=== PATIENT | female | born 1965 | race Caucasian/White ===

== ENCOUNTER → 2017-10-08 14:51 | Outpatient (CLI) | payer BC, SELFPAY ==
[2017-10-09 09:37] LABS: Vitamin D,25 Hydroxy 43.9 ng/mL (29.95-100.01)
== END ==
PROVIDERS: Family Provider Family Medicine; PCP Family Medicine; Visit Provider Family Medicine
DX: E55.9 Vitamin D deficiency, unspecified (principal)
CPT/HCPCS: 36415; 82306

== ENCOUNTER → 2018-10-20 09:59 | Outpatient (CLI) | payer BC, SELFPAY ==
[2018-10-20 12:20] LABS: Absolute Lymphocyte Count 1.41 X10^3/ul (0.83-4.51); Absolute Neutrophil Count 2.3 X10^3/uL (2.0-7.7); Basophil# 0.06 X10^3/uL; Basophil% 1.4 % (0-1); Eosinophil# 0.14 X10^3/uL; Eosinophils% 3.2 % (0-5); Hematocrit 40.1 % (37-47); Hemoglobin 12.8 g/dl (12.0-15.0); Lymphocyte # 1.41 X10^3/ul (4.0); Lymphocyte % 31.9 % (19-41); Mean Corp Hgb Conc 31.9 g/gl (32-36); Mean Corpuscular Hgb 28.2 pg (27.0-32.0); Mean Corpuscular Volume 88.3 fL (81-99); Mean Platelet Vol. 10.4 fl (6.2-12.0); Monocyte# 0.52 X10^3/uL; Monocyte% 11.8 % (0-10); Neutrophil # 2.29 X10^3/uL (2.7-7.7); Neutrophil % 51.7 % (47-70); Platelet Count 279 K/mm3 (150-450); RBC Distribution Width CV 13.7 % (11.6-14.6); RBC Distribution Width SD 43.9 fl (35.1-43.9); Red Blood Count 4.54 M/mm3 (4.2-5.4); White Blood Count 4.4 K/mm3 (4.4-11.0)
[2018-10-20 12:30] LABS: POSITIVE COUNT NO; POSITIVE DIFFERENTIAL NO; POSITIVE MORPHOLOGY NO
[2018-10-20 12:53] LABS: Vitamin D,25 Hydroxy 27.2 ng/mL (29.95-100.01)
[2018-10-20 12:59] LABS: Anion Gap 6 (5-15); BUN 26 mg/dL (7-18); BUN/Creat Ratio 29.6 RATIO (10-20); Calcium,Total 8.8 mg/dL (8.5-10.1); Chloride 108 mmol/L (98-107); Cholesterol 237 mg/dL (200); Creatinine, Serum 0.88 mg/dL (0.55-1.02); EST Glomerular Filtration Rate 71 mL/min (>60); Est Glom Filt Rate - Afr Amer 86 mL/min (>60); Glucose 89 mg/dL (74-106); High Density Lipoprotein 107 mg/dL; Potassium 4.4 mmol/L (3.5-5.1); Sodium Level 141 mmol/L (136-145); Triglycerides 65 mg/dL; Very Low Density Lipoprotein 13 mg/dL (5-40)
== END ==
PROVIDERS: Family Provider Family Medicine; PCP Family Medicine; Referring Provider Family Medicine; Visit Provider Family Medicine
DX: Z00.00 Encounter for general adult medical examination without abnormal findings (principal)
CPT/HCPCS: 36415; 80048; 80061; 82306; 85025

== ENCOUNTER → 2019-04-24 14:45 | Outpatient (CLI) | payer BC, SELFPAY ==
[2019-04-24 16:25] LABS: ALB/GLOB Ratio 1.1 RATIO (0.9-2.4); AST(SGOT) 20 U/L (15-37); Alanine Aminotransfer ALT/SGPT 28 U/L (13-56); Albumin, Serum 3.9 g/dL (3.2-5.0); Alkaline Phosphatase 70 U/L (45-117); Anion Gap 5 (5-15); BUN 15 mg/dL (7-18); BUN/Creat Ratio 16.6 RATIO (10-20); Chloride 104 mmol/L (98-107); EST Glomerular Filtration Rate 69 mL/min (>60); Est Glom Filt Rate - Afr Amer 84 mL/min (>60); Globulin 3.6 g/dL (2.2-4.2); Glucose 79 mg/dL (74-106); Potassium 3.8 mmol/L (3.5-5.1); Protein, Total 7.5 g/dL (6.4-8.2); Sodium Level 137 mmol/L (136-145)
== END ==
PROVIDERS: Family Provider Family Medicine; PCP Family Medicine; Referring Provider Family Medicine; Visit Provider Family Medicine
DX: E78.00 Pure hypercholesterolemia, unspecified (principal)
CPT/HCPCS: 36415; 80053

== ENCOUNTER → 2020-01-07 13:40 | Outpatient (CLI) | payer BC, SELFPAY ==
[2020-01-07 15:35] LABS: Absolute Neutrophil Count 2.6 X10^3/uL (2.0-7.7); Basophil# 0.08 X10^3/uL; Basophil% 1.5 % (0-1); Eosinophil# 0.18 X10^3/uL; Eosinophils% 3.4 % (0-5); Hematocrit 40.1 % (37-47); Hemoglobin 12.9 g/dL (12.0-15.0); Lymphocyte % 35.8 % (19-41); Mean Corp Hgb Conc 32.2 g/dL (32-36); Mean Corpuscular Hgb 27.8 pg (27.0-32.0); Mean Corpuscular Volume 86.4 fL (81-99); Monocyte# 0.53 X10^3/uL; NRBC Flagged by Analyzer 0 % (0-5); Neutrophil # 2.61 X10^3/uL (2.7-7.7); Neutrophil % 49.1 % (47-70); Platelet Count 256 K/mm3 (150-450); RBC Distribution Width CV 14.6 % (11.6-14.6); RBC Distribution Width SD 46.3 fl (35.1-43.9); Red Blood Count 4.64 M/mm3 (4.2-5.4); White Blood Count 5.3 K/mm3 (4.4-11.0)
[2020-01-07 15:55] LABS: ALB/GLOB Ratio 1.6 RATIO (0.9-2.4); AST(SGOT) 13 U/L (15-37); Alanine Aminotransfer ALT/SGPT 25 U/L (13-56); Albumin, Serum 4.2 g/dL (3.2-5.0); Alkaline Phosphatase 72 U/L (45-117); Anion Gap 10 (5-15); BUN 20 mg/dL (7-18); BUN/Creat Ratio 25.1 RATIO (10-20); Calcium,Total 8.5 mg/dL (8.5-10.1); Chloride 105 mmol/L (98-107); Cholesterol 208 mg/dL (200); EST Glomerular Filtration Rate 79 mL/min (>60); Est Glom Filt Rate - Afr Amer 96 mL/min (>60); Globulin 2.7 g/dL (2.2-4.2); Glucose 83 mg/dL (74-106); High Density Lipoprotein 91 mg/dL; Potassium 3.8 mmol/L (3.5-5.1); Protein, Total 6.9 g/dL (6.4-8.2); Sodium Level 138 mmol/L (136-145); Thyroid Stim Hormone (TSH) 1.53 uIU/mL (0.358-3.74); Triglycerides 58 mg/dL; Very Low Density Lipoprotein 12 mg/dL (5-40)
== END ==
PROVIDERS: PCP Family Medicine; Referring Provider Family Medicine; Visit Provider Family Medicine
DX: E78.00 Pure hypercholesterolemia, unspecified (principal); E66.9 Obesity, unspecified; Z79.899 Other long term (current) drug therapy
CPT/HCPCS: 36415; 80053; 80061; 84443; 85025

== ENCOUNTER 2021-06-11 11:08 | Emergency (ER) | payer BC, SELFPAY ==
[2021-06-11 11:09] VITALS: BP 122/89; PULSE 111; RESP 20; TEMP 36.1; O2SAT 100; BMI 30.7
--- NOTE | 2021-06-11 11:33 | CT_ITS ---
STUDY: CT ABDOMEN AND PELVIS WITHOUT CONTRAST REASON FOR EXAM: Female, 55 years old. Pain RADIATION DOSAGE (If Supplied By Facility): CTDIvol = ( 12.74 ) mGy, DLP = ( 661.93 ) mGycm TECHNIQUE: Transaxial images were obtained from the dome of the diaphragm to the symphysis pubis without oral contrast, and without intravenous contrast. Sagittal and coronal images were reconstructed. Individualized dose optimization techniques were used for this CT. COMPARISON: 12/31/2011 CT FINDINGS: Lung bases demonstrate no consolidative process. Platelike atelectasis in the lung bases. No pericardial effusion. Liver and spleen demonstrate no acute abnormalities. Pancreas and adrenal glands appear unremarkable. Normal-appearing appendix. Uncomplicated colonic diverticulosis. Small fat-containing umbilical hernia No free intraperitoneal air. No drainable fluid collections. Degenerative changes of the lumbar spine. Normal caliber of the abdominal aorta with calcifications. IMPRESSION: No evidence for acute appendicitis, diverticulitis or bowel obstruction. No evidence for obstructive uropathy. Electronically Signed: Abebe Ortiz MD at 12:15 EST Tel , Service support , CT/Abdomen/Pelvis without Cont
--- NOTE | 2021-06-11 11:34 | EDS_ITS ---
HPI HPI - GI History of Present Illness Chief Complaint: Flank Pain Informant: patient and spouse/S.O. Abdominal Pain/Flank Pain Onset: Days Context: Gradual Onset Timing: Continuous Quality: Sharp Location: Right Flank and Left Flank Current Severity: Severe Maximum Severity: Severe Worsened by: Nothing Relieved by: Nothing Nausea/Vomiting/Emesis GI Symptom: Negative for Nausea and Vomiting Diarrhea/Melena/Hematochezia GI Symptom: Negative for Diarrhea, Melena and Hematochezia Associated Symptoms Associated Symptoms: Negative for Dysuria, Frequency, Hematuria and Urgency Narrative Narrative: 55-year-old female history of depression. Has had a prior kidney stone. Since on Saturday she had bilateral lower back pain. Was seen at [facility] urgent care x2 in the last several days and had a dip urine that was negative KUB that showed a left renal stone and increased stool. States she took stool softener and seemed to have bowel movements. But the pain progressively gets worse. It is on her right flank wrapping around to her groin. Also her left side of her back. She denies any falls or trauma. No fever. No dysuria. No prior back history or surgery. She denies any weight loss. Prior similar symptoms: No Recent Illness/Hospitalization: No PFSH PFSH Medical History Depression Kidney stones Home Medications hydrocodone-acetaminophen 1 tab PO Q4H PRN 4 Days #14 tab 06/11/21 [Rx Last Taken Unknown] Allergy/AdvReac Type Severity Reaction Status Date / Time No Known Allergies Allergy Verified 06/11/21 11:09 Social History Smoking Status: Never smoker ROS ROS ED ROS Narrative Back and flank pain. Review of Systems ROS Unobtainable: Denies due to encephalopathy Constitutional Constitutional ED: Denies chills, fever(s) or subjective ENT ENT ED: Denies ear pain or rhinorrhea Cardiovascular Cardiovascular: Denies chest pain or palpitations Respiratory/Chest Respiratory/Chest: Denies cough or dyspnea Gastrointestinal Gastrointestinal: Denies abdominal pain, diarrhea, nausea or vomiting Genitourinary Genitourinary ED: Denies dysuria, hematuria or urinary frequency Musculoskeletal Musculoskeletal: Reports back pain; Denies arthralgias or myalgias Integumentary Denies abscess or rash Neurologic Neurologic: Denies headache(s) Psychiatric Psychiatric: Denies depression Endocrine Endocrinology: Denies polyuria Hematologic/Lymphatic Hematologic/Lymphatic: Denies easy bruising Allergic/Immunologic Allergic/Immunologic ED: Denies urticaria EXAM Physical Exam Narrative Exam Narrative: Middle-aged female in pain. Vital signs are stable afebrile. H EENT exam unremarkable. Neck nontender. Lungs clear to auscultation. Heart regular rhythm rate about 105 no murmur. Abdomen soft nontender nondistended normal bowel sounds no peritoneal signs. No hernia or mass. No signs of obstruction. Both the right upper and right lower quadrant unremarkable. Moving all 4 extremities. Neurovascularly intact. Normal motor strength and sensation both upper and lower extremities. No cauda equina. Back nontender and no signs of trauma. There is no reproducible pain on either the abdomen or back. Neurologic exam is normal. Const Vital Signs: 06/11/21 11:09 06/11/21 12:49 Temperature 97.0 F L 97 F L Temperature Source Temporal Temporal Pulse Rate 111 H 73 Respiratory Rate 20 H 24 H Blood Pressure 122/89 H 118/66 Blood Pressure Mean 100 83 Pulse Ox 100 100 Oxygen Delivery Method Room Air Room Air Positive well nourished and well developed; Negative for cachectic, contractures or unkempt General Appearance ED: well developed and NAD; Negative for unkempt, cachectic, contractures or pallor Nutritional Appearance: Negative for cachectic HEENT Reports moist mucous membranes normocephalic and atraumatic; Negative for trauma or tenderness Eyes PERRL and EOMs intact bilaterally Neck no lymphadenopathy, supple and no JVD General: Negative for tenderness Resp normal respiratory effort and clear to auscultation bilaterally Auscultation: Negative for rales, rhonchi or wheezes Cardio regular rate, regular rhythm, S1 normal heart sound, S2 normal heart sound and no murmurs GI non-tender, non-distended and no masses Auscultation: normoactive bowel sounds Palpation: soft; Negative for tender, guarding or rigid Back/Spine no CVA tenderness General Back: Negative for CVA tenderness Cervical Spine: Negative for cervical spine tenderness Thoracic Spine / Upper Back: Negative for thoracic spinal tenderness Extremity full ROM General Extremety ED: Negative for edema or tenderness General Extremity: Negative for edema Neuro CN's II-XII intact bilaterally, moves all extremities and no sensory deficits noted Sensorium / Orientation: alert, oriented to person, oriented to place and oriented to time; Negative for orientation impaired, confused, lethargic or stuporous Motor Exam: strength 5/5 throughout; Negative for general weakness Psych mental status grossly normal and thought process normal Appearance: Negative for unkempt Skin no wounds General Skin Exam: Negative for jaundice or pallor Lesions: no lesions Rashes: no rashes MDM MDM MDM Narrative Medical decision making narrative: 55-year-old with back and flank pain. Treated with IV morphine, fluids, Toradol and Zofran. CAT scan and labs are pending. Kidney stones in the differential but it is bilateral flank pain could also be urinary tract infection versus musculoskeletal etiology. Exam is not consistent with musculoskeletal pain. There is no signs of cauda equina. In her abdomen is completely nontender. Repeat exam at 12:11 PM patient is much more comfortable after the pain medicati on. Repeat exam patient doing well at 2 PM. Her pain is much improved. This does seem to be musculoskeletal back pain. Her abdomen is completely benign and has never been tender. Her work-ups been negative. Her lower extremities have normal motor strength and sensation. She will be discharged home on Motrin and limited [place] and follow-up for possible outpatient MRI if her symptoms are impr oving. Lab Data Attestation: I reviewed the patient's lab results. Lab results narrative: CBC normal white count of four hemoglobin of 13. Normal platelets. No bands. Electrolytes unremarkable gap of five normal BUN and creatinine. Glucose of 89 normal liver enzymes. Urinalysis is clean. No signs of infection. No blood. Only 1+ bacteria no nitrates no white cells. Labs: Laboratory Results - last 24 hr 06/11/21 06/11/21 06/11/21 11:20 11:20 12:30 WBC 4.5 RBC 4.62 Hgb 13.0 Hct 40.1 MCV 86.8 MCH 28.1 MCHC 32.4 RDW Std Deviation 43.2 RDW Coeff of Mary Carmen 13.7 Plt Count 306 MPV 9.8 Immature Gran % (Auto) 0.200 Neut % (Auto) 45.4 L Lymph % (Auto) 42.0 H Howard % (Auto) 8.8 Eos % (Auto) 2.7 Baso % (Auto) 0.9 Absolute Neuts (auto) 2.1 Absolute Lymphs (auto) 1.90 Nucleated RBC % 0 Sodium 141 Potassium 3.8 Chloride 107 Carbon Dioxide 29.0 Anion Gap 5 BUN 18 Creatinine 0.90 Estim Creat Clear Calc 65.34 Est GFR (MDRD) Af Amer 84 Est GFR (MDRD) Non-Af 69 BUN/Creatinine Ratio 20.1 H Glucose 89 Calcium 9.0 Total Bilirubin 0.40 AST 14 L ALT 28 Alkaline Phosphatase 63 Total Protein 7.3 Albumin 3.8 Globulin 3.5 Albumin/Globulin Ratio 1.1 Urine Color Yellow Urine Clarity Clear Urine pH 7.0 Ur Specific [place] 1.015 Urine Protein 15 H Urine Glucose (UA) Normal Urine Ketones Negative Urine Occult Blood Negative Urine Nitrite Negative Urine Bilirubin Negative Urine Urobilinogen Normal Ur Leukocyte Esterase Negative Urine RBC 0 SEEN Urine WBC 0 SEEN Ur Squamous Epith Cells 0-5 SEEN Urine Bacteria 1+ Urine Mucus 0 SEEN Radiography Diagnostic Testing: Clinical Impression(s) from Imaging Studies Abdomen/Pelvis CT 06/11/21 11:33 Discharge Plan Triage Chief Complaint: Flank Pain ED Provider: Nolberto Saenz Dx/Rx/DC Orders Clinical Impression: Back pain Instructions: Relieving Back Pain, ED Back Pain (Acute or Chronic) Prescriptions: New hydrocodone-acetaminophen 5-325 mg tablet 1 tab PO Q4H PRN (Reason: pain) 4 Days Qty: 14 RF: 0 Primary Care Provider: Care Physician,No Primary Referrals: Calvin Vivas MD [STAFF PHYSICIAN] - As soon as possible Julien Chandra MD [NON-STAFF] - 10-14 Days if not better Care Physician,No Primary [Primary Care Provider] - Activity Restrictions/Additional Instructions: Motrin for pain and inflammation. Hot shower and warm bath to relax the muscles. [place] for more severe pain. Do not use Tylenol if using the [place]. Call follow-up with a local primary care physician like Dr. Vivas if not improving you may need MRI of your lumbar spine. If you need to see a back specialist consider Dr. Julien Chandra in [place]. Disposition Disposition: Home, Self Care
[2021-06-11] MEDS: morphine 8 MG/ML Syringe IV (11:41)
[2021-06-11] MEDS: Ketorolac 30 MG/ML Syringe IV (11:41)
[2021-06-11] MEDS: 0.9% Normal Saline 1,000 ML 1000 ML IV (11:41)
[2021-06-11] MEDS: Ondansetron 4 MG/2 ML Vial IV (11:41)
[2021-06-11 11:44] LABS: Absolute Neutrophil Count 2.1 X10^3/uL (2.0-7.7); Basophil# 0.04 X10^3/uL; Basophil% 0.9 % (0-1); Eosinophil# 0.12 X10^3/uL; Eosinophils% 2.7 % (0-5); Hematocrit 40.1 % (37-47); Mean Corp Hgb Conc 32.4 g/dL (32-36); Mean Corpuscular Hgb 28.1 pg (27.0-32.0); Mean Corpuscular Volume 86.8 fL (81-99); Mean Platelet Vol. 9.8 fl (6.2-12.0); Monocyte% 8.8 % (0-10); NRBC Flagged by Analyzer 0 % (0-5); Neutrophil # 2.05 X10^3/uL (2.7-7.7); Neutrophil % 45.4 % (47-70); Platelet Count 306 K/mm3 (150-450); RBC Distribution Width CV 13.7 % (11.6-14.6); RBC Distribution Width SD 43.2 fl (35.1-43.9); Red Blood Count 4.62 M/mm3 (4.2-5.4); White Blood Count 4.5 K/mm3 (4.4-11.0)
[2021-06-11 11:56] LABS: ALB/GLOB Ratio 1.1 RATIO (0.9-2.4); AST(SGOT) 14 U/L (15-37); Alanine Aminotransfer ALT/SGPT 28 U/L (13-56); Albumin, Serum 3.8 g/dL (3.2-5.0); Alkaline Phosphatase 63 U/L (45-117); Anion Gap 5 (5-15); BUN 18 mg/dL (7-18); BUN/Creat Ratio 20.1 RATIO (10-20); Chloride 107 mmol/L (98-107); EST Glomerular Filtration Rate 69 mL/min (>60); Est Glom Filt Rate - Afr Amer 84 mL/min (>60); Estimated Creatinine Clearance 65.34 ml/min; Globulin 3.5 g/dL (2.2-4.2); Glucose 89 mg/dL (74-106); Potassium 3.8 mmol/L (3.5-5.1); Protein, Total 7.3 g/dL (6.4-8.2); Sodium Level 141 mmol/L (136-145)
[2021-06-11 12:34] LABS: Mucous, Urine 0 SEEN /hpf (<or=2+); Red Blood Cells-Urine 0 SEEN /hpf (0-5); White Blood Cells 0 SEEN /hpf (0-5)
[2021-06-11 12:36] LABS: Color, Urine Yellow (Yellow); Glucose, Dipstick Normal (Normal); Ketone-Dipstick Negative (Negative); Leukocyte Esterase-Dipstick Negative /ul (Negative); Nitrite-Dipstick Negative (Negative); Occult Blood-Urine Negative /ul (Negative); Protein-Dipstick 15 mg/dl (Negative); Specific Gravity, Urine 1.015 (1.002-1.030); Urine Bilirubin Dipstick Negative (Negative); Urine Clarity Clear (Clear); Urine Urobilinogen Normal (Normal)
[2021-06-11 12:45] LABS: Bacteria 1+ /hpf (None Seen); Squamous Epithelial Cells - UA 0-5 SEEN /hpf (5-10)
[2021-06-11] MEDS: Morphine 4 MG/ML Syringe 6 MG IV (12:47)
[2021-06-11 12:49] VITALS: BP 118/66; PULSE 73; RESP 24; TEMP 36.1; O2SAT 100
== END 2021-06-11 14:16 | disposition home or self-care (01) ==
PROVIDERS: Emergency Provider Emergency Medicine
DX: M54.50 Low back pain, unspecified (principal); R10.9 Unspecified abdominal pain; Z87.442 Personal history of urinary calculi
CPT/HCPCS: 74176; 80053; 81001; 85025; 96361; 96374; 96375; 96376; 99283; J7030; A4216; J2405

== ENCOUNTER → 2021-06-12 12:01 | Outpatient (CLI) | payer BC, SELFPAY ==
--- NOTE | 2021-06-12 12:04 | RAD_ITS ---
STUDY: X-RAY - ABDOMEN/PELVIS REASON FOR EXAM: Female, 55 years old. Constipation. TECHNIQUE: AP supine and upright views of the abdomen and pelvis on 4 images. COMPARISON: None. FINDINGS: Normal visualized lung bases. There is an unremarkable bowel gas pattern with air seen to the rectosigmoid. Moderate amount of feces in the colon. There is no demonstrated free abdominal air. The visualized liver, spleen and kidneys are grossly normal in size and morphology. Normal soft tissue structures. Normal visualized osseous structures. RAD/Abd Inc Decub and/or Erect IMPRESSION: Moderate amount of feces in the colon which may represent constipation. No acute abnormality. Electronically Signed: Tom Do MD at 13:26 EST , Service support ,
--- NOTE | 2021-06-12 12:04 | RAD_ITS ---
STUDY: X-RAY - LUMBAR SPINE REASON FOR EXAM: Female, 55 years old. Back pain. TECHNIQUE: 4 view(s) of the lumbar spine were obtained. COMPARISON: None FINDINGS: Normal lumbar lordosis. There is no substantial scoliosis. There is a normal alignment of the vertebrae. Mild diffuse facet sclerosis. Normal vertebral bodies and endplates. Minimal intervertebral disc space narrowing diffusely with small osteophytes at L1-2, L2-3, L3-4 and L4-L5. The soft tissue structures are unremarkable. RAD/L/S Spine Min 4 Views IMPRESSION: Mild diffuse lumbosacral spondylosis. No acute abnormality, erosive changes or fusion. Electronically Signed: Tom Do MD at 13:28 EST , Service support ,
== END ==
PROVIDERS: PCP Family Medicine; Referring Provider Family Medicine; Visit Provider Family Medicine
DX: K59.00 Constipation, unspecified (principal); M54.9 Dorsalgia, unspecified
CPT/HCPCS: 72110; 74019

== ENCOUNTER → 2021-06-20 10:21 | Outpatient (CLI) | payer BC, SELFPAY ==
--- NOTE | 2021-06-20 10:23 | MRI_ITS ---
HISTORY: pain. TECHNIQUE: Multiplanar and multisequence MR images of the lumbar spine. IV Contrast dosage and agent: None. # of images incl. paperwork: 126. COMPARISON: XR 06/12/2021. FINDINGS: VERTEBRAE: Vertebral body heights maintained. No significant bone marrow signal abnormality. ALIGNMENT: No anterior or posterior subluxation. CONUS: Normal morphology and position at L1. SOFT TISSUES: Mild posterior subcutaneous edema. INTERVERTEBRAL DISCS: T12-L1: Minimal posterior disc protrusion. No significant central canal stenosis or foraminal narrowing. L1-2: Mild posterior disc bulge osteophyte complex with facet arthropathy. No significant central canal stenosis or foraminal narrowing. L2-3:Minimal posterior disc protrusion with facet arthropathy. No significant central canal stenosis or foraminal narrowing. L3-4, L4-5: Minimal disc bulge and facet arthropathy. No significant central canal stenosis or foraminal narrowing. L5-S1: No significant posterior disc herniation, central canal stenosis, or foraminal narrowing. MRI/Spine Lumbar (Routine) IMPRESSION: Mild degenerative disc disease without significant lumbar spinal canal stenosis. at 1134 Reported and signed by: Geovanna Page MD Electronically Signed: Geovanna Page MD at 11:33 EST Tel , Service support ,
== END ==
PROVIDERS: PCP Family Medicine; Referring Provider Orthopaedic Surgery; Visit Provider Orthopaedic Surgery
DX: G83.4 Cauda equina syndrome (principal); M54.9 Dorsalgia, unspecified
CPT/HCPCS: 72148

== ENCOUNTER 2021-07-19 09:51 | Day surgery (SDC) | payer BC, SELFPAY ==
[2021-07-19] MEDS: Lactated Ringers 1,000 ML 15 ML IV (10:00)
--- NOTE | 2021-07-19 10:04 | PCM.HP.BLA ---
History and Physical Date of Admission: 07/19/21 Intake Intake Visit Reasons: nausea/bloating/constipation Allergies No Known Allergies Allergy (Verified 07/11/21 15:15) Medications hydrocodone-acetaminophen 1 tab PO Q4H PRN 4 Days #14 tab 06/11/21 [Rx Confirmed 07/11/21] ascorbic acid (vitamin C) 500 mg capsule mg PO 06/19/21 [History Confirmed 07/11/21] bupropion HCl 150 mg 24 hr tablet, extended release 150 mg PO QAM 06/19/21 [History Confirmed 07/11/21] cholecalciferol (vitamin D3) 25 mcg (1,000 unit) capsule 25 mcg PO DAILY 06/19/21 [History Confirmed 07/11/21] esomeprazole magnesium 20 mg capsule,delayed release 20 mg PO DAILY 06/19/21 [History Confirmed 07/11/21] lamotrigine 25 mg tablet 25 mg PO ONCE 06/19/21 [History Confirmed 07/11/21] vitamin B complex 1 cap PO DAILY 06/19/21 [History Confirmed 07/11/21] zinc 50 mg tablet 50 mg PO DAILY 06/19/21 [History Confirmed 07/11/21] PFSH Medical History Depression Kidney stones Surgical History H/O gastric bypass H/O nasal septoplasty History of tonsillectomy History of ureter stent Hx of arthroscopic knee surgery Family History Father Cancer Prostate cancer Hodgkins disease Mesothelioma Mother Thyroid disorder A-fib Brother Asthma Social History household members: spouse and children Smoking Status: Never smoker alcohol intake: current alcohol intake frequency: holidays/special occasions only HPI HPI HPI: BLADE PINEDO, is a 55 F who presents to the office today for surgical consultation regarding right flank pain lower quadrant pain and mid abdominal pain and epigastric pain bloating constipation. 55-year-old female. About 5 weeks ago she developed a right lower back pain and concomitant constipation. She was seen at urgent care at [facility] and states she had a renal ultrasound and KUB. The ultrasound failed to demonstrate kidney stone. The KUB demonstrated constipation. She was given Toradol. The right flank pain and lower quadrant pain persisted. She then took a dosing of MiraLAX and had very good movement of her bowels however the flank pain continued. She presented to the emergency room the next day. On June 11, 2021 emergency room she was evaluated by Dr. Jose Roberto Saenz. White blood cell count was 4.5 hemoglobin 13 medical 40.1 platelet count 306,000 with essentially normal differential. BUN was 18 creatinine 0.9. Liver function tests were normal. Urinalysis had 0 white cells 0 red cells 1+ bacteria. A noncontrasted CT of the abdomen pelvis was obtained. Pancreas adrenals unremarkable. There was some platelike atelectasis in the lung bases. Uncomplicated colonic diverticulosis. Small fat-containing umbilical hernia. No acute findings. No evidence for appendicitis. No obstructive uropathy. It is of note that the next day the patient had abdominal films performed at the request of Dr. Raisa King. This demonstrated a moderate amount of feces in the colon but otherwise no acute abnormality. Apparently spine films were also obtained without acute process. The patient was then referred to Dr. Gomez Crowder spine surgery. On June 20, 2021 MRI was obtained showing mild degenerative disc disease without significant lumbar spinal canal stenosis. The patient was subsequently sent to physical therapy. She has been placed on Flexeril. Subsequent to the right flank pain and low abdominal pain now she has developed epigastric and mid abdominal pain. She has bloating and nausea. On further investigation it appears that she has been taking nonsteroidal anti-inflammatory agents for her stomach. Reviewing back January 10, 2012 I assisted her with a combined upper and lower endoscopy which was not remarkable. Because of abdominal pain complaints January 2019 Dr. Luis Winkler performed an upper endoscopy apparently this demonstrated intestinal metaplasia and active gastritis. She was placed on Nexium. Apparently she had been on NSAIDs at that time and was instructed to cease. She improved. The intestinal metaplasia was of concern and so December 2019 she had a repeat upper endoscopy. That was in follow-up of her intestinal metaplasia and that it apparently was improved. She has no family history of colon cancer. She did experience Covid-16 June 2020. Since that time she has been vaccinated. Her current problems however are ongoing right lower quadrant pain ongoing right flank pain ongoing constipation ongoing mid abdominal epigastric pain nausea and bloating. This addendum is in spite of her being on Nexium therapy 20 mg daily. The patient does admit that she is still intermittently taking some nonsteroidals to assist with the severity of the pain in the right flank lower back area There is been no noted bright red blood per rectum or melena. No fever or chills. No history of leg swelling or DVT ROS General General: No weight change, appetite, fatigue, colon cancer, breast cancer or weakness HEENT HEENT: No difficulty swallowing, eye injury, eye surgery, swollen glands or hoarseness Endo Endocrine: No thyroid disease, diabetes mellitus, thyroid cancer, Hair loss, heat intolerance or cold intolerance Skin Skin: No rash or changing moles Musc Musculoskeletal: Yes back problems; No arthritis, rheumatoid arthritis, gout or joint pain Cardio Cardiovascular: No murmur, pacemaker, heart disease, atrial fibrillation, high blood pressure, heart attack, heart stent, palpitations, shortness of breat with exertion or chest pain Psych Psychiatric: Yes depression and anxiety; No hearing voices Resp Respiratory: No shortness of breath, No sleep apnea, No cough, No COPD, No asthma, No emphysema and No wheezing Gastro Gastrointestinal: Yes abdominal pain, Yes nausea or vomiting, No diarrhea, Yes constipation, No blood in stool, Yes acid reflux, Yes hemorrhoids, No ulcers, No gallbladder problem and No black,tarry stools [place] Hematologic: No blood thinners, No blood disorders, No bleeding, No anemia and No blood clots Neuro Neurologic: No system reviewed and no additional complaints, except as documented, No as per HPI, No abnormal gait, No abnormal hearing, No abnormal movements, No abnormal speech, No behavioral changes, No burning sensations, No confusion, No convulsions, No disequilibrium, No dizziness, No localized weakness, No frequent falls, No headache(s), No lack of coordination, No loss of vision, No memory loss, No numbness, No other visual disturbances, No radicular pain, No restless legs, No sensory deficit, No syncope, No tingling, No tremor(s), No weakness and No other Exam Const General: cooperative, comfortable, no acute distress and well developed Nutritional Appearance: overweight Orientation: alert and awake [facility] Head: normal to inspection Eyes General: appearance normal, both eyes and all related structures Neck Neck: normal visual inspection Chest Chest palpation & inspection: normal inspection of the chest Resp Effort & Inspection: normal respiratory effort Auscultation: clear to auscultation bilaterally Cardio Rate: regular rate Rhythm: regular rhythm GI Other: Soft, minimal tenderness to deep palpation right lower quadrant, no mass, no rebound or guarding, normal bowel sounds Musc Cervical Spine: normal cervical lordosis Skin General: no rashes or lesions noted Neuro General: patient alert and patient awake Extrem General: no calf tenderness Psych Appearance: grossly normal Assessment and Plan Assessment and Plan (1) Right flank pain: Status: Acute (2) Right lower quadrant pain: Status: Acute (3) Constipation: Status: Acute Qualifiers: Constipation type: unspecified constipation type Qualified Code(s): K59.00 - Constipation, unspecified (4) Epigastric abdominal pain: Status: Acute Plan Details Additional Comments: 55-year-old female with complexity of issues. The right flank pain and right lower quadrant pain of undetermined etiology. I do propose for her a colonoscopy with possible biopsy or polypectomy. Very careful inspection of the cecum and possibly terminal ileum will be pursued. Consideration for rodriguez biopsy. Regarding the mid abdominal pain nausea I would propose an upper endoscopy as well. Careful inspection for any source of intestinal aplasia will be pursued. Inspection for H. pylori or even eosinophilic esophagitis. Pending the outcome of this evaluation then will be able to better advise the patient on treatment options. I have some concern that her epigastric pain may have evolved from repeat use of NSAIDs in order to combat her right flank pain. There is source of her constipation is less clear. Certainly some of this could all be irritable bowel syndrome as well. The patient will be transitioning in the near future to Dr Calvin Vivas as her new physician. She anticipates seeing him July 2021. She has had an opportunity to ask and have questions answered. We will schedule and expedite her endoscopy. I appreciate the opportunity of assisting with her surgical care. Copy: Dr Calvin Sapp M.D., F.A.C. I have re-examined the patient. There are no clinical changes since date of exam. Gvoind Sapp M.D., F.A.C.S.
[2021-07-19 10:11] VITALS: BP 147/83; PULSE 87; RESP 16; TEMP 36.3; O2SAT 99; BMI 30.7
--- NOTE | 2021-07-19 11:00 | IMM_PTH ---
PATIENT: BLADE PINEDO LOC: EN U#:[id number] AGE/SX: 55/F ROOM: RE07/19/[address]: Dr. Govind Sapp MD : 1965 BED: DIS: 07/19/2021 SPEC #: [id number] RECD: 07/19/21 14:53 STATUS: JONATHAN REQ #: [id number] FLORA: 07/19/21 11:[address]: Govind Sapp DEPT: IMMUNOHISTOCHEMISTRY RECD BY: Phyllis Aranda ENTERED: 07/19/21 14:53 SP TYPE: IMMUNO OTHR DR: Dr. Calvin Vivas MD Tissues: B - Stomach, NOS Procedures: H Pylori (initial) PHYSICIAN & INSTITUTION [place] [id number] SPECIMEN INFORMATION: Tissue Source: B ? Antrum biopsy Clinical Info: Right flank pain, right lower quadrant pain, constipation, epigastric abdominal pain Specimen Number: [id number] CPT code: 56737 METHODOLOGY: Deparaffinized sections of prefer/formalin-fixed tissue or PAP/DQ stained slides are incubated with monoclonal/polyclonal antibodies/oligonucleotide probes. Localization is made via biotin free immunoperoxidase method. Appropriate controls are performed and reacted as expected. Results on target cell population are indicated in the following table: RESULTS: ANTIBODY / CLONE RESULT Block B H Pylori (polyclonal) negative These tests were developed and their performance characteristics determined by [facility]. They may not have been cleared or approved by the U.S. Food and Drug Administration. The FDA has determined that such clearance or approval is not necessary. INTERPRETATION: B. Antrum biopsy: Negative for Helicobacter pylori organisms. AM:nathan 07/20/2021
--- NOTE | 2021-07-19 11:00 | EGD_PTH ---
PATIENT: BLADE PINEDO LOC: EN U#:[id number] AGE/SX: 55/F ROOM: RE07/19/[address]: Dr. Govind Sapp MD : 1965 BED: DIS: 07/19/2021 SPEC #: [id number] RECD: 07/19/21 11:23 STATUS: JONATHAN SZYMANSKI #: [id number] FLORA: 07/19/21 11:[address]: Govind Sapp DEPT: SURGICAL PATHOLOGY RECD BY: Missy Rodriguez ENTERED: 07/19/21 13:21 SP TYPE: EGD BIOPSY OT DR: Dr. Calvin Vivas MD Tissues: A - Duodenum, NOS B - Stomach, NOS C - Esophagus, NOS D - Ileum, NOS E - COLON BIOPSY Procedures: Trichrome (control) Special Stain Group II Surgery Specimen Level IV Alcian Blue/PAS (control) HEADER OPERATION: Colonoscopy, EGD ([facility] [place] PRE-OP DIAGNOSIS: Right flank pain, right lower quadrant pain, constipation, epigastric abdominal pain TISSUE SUBMITTED: A ? Duodenum biopsy, B ? Antrum biopsy for H. pylori and path, C ? GE junction biopsy, D - Mid esophagus biopsy, E ? Terminal ileum biopsy, F ? Random colon biopsies MICROSCOPIC DIAGNOSIS A. Duodenum, biopsy: No pathologic change. B. Gastric antrum, biopsy: Chronic gastritis. See comment. C. Gastroesophageal junction, biopsy: Mild chronic inflammation. Focal changes of reflux. No evidence of goblet cell metaplasia. See comment. D. Mid esophagus, biopsy: Mild chronic inflammation. E. Terminal ileum, biopsy: No pathologic change. F. Colon, random biopsy: No pathologic change. See comment. AM:nathan 07/20/2021 COMMENT B. The results of immunohistochemistry for Helicobacter pylori will be reported separately ([id number]). C. Alcian blue/PAS stain with matched control supports the above diagnosis. F. Trichrome stain with matched control was used in the evaluation of this case. MICROSCOPIC DESCRIPTION Slides are reviewed. GROSS DESCRIPTION A - Received in fixative is one container labeled with the patient's name and designated duodenum biopsy. The specimen consists of multiple irregular fragments of light cloud soft tissue that in aggregate measure 0.7 x 0.5 x 0.1 cm. The specimen is totally submitted in one cassette. B - Received in fixative is one container labeled with the patient's name and designated antrum biopsy. The specimen consists of one irregular fragment of light cloud soft tissue that measures 0.8 x 0.3 x 0.1 cm. The specimen is totally submitted in one cassette. C - Received in fixative is one container labeled with the patient's name and designated GE junction biopsy. The specimen consists of multiple irregular fragments of light cloud soft tissue that in aggregate measure 2 x 0.6 x 0.1 cm. The specimen is totally submitted in one cassette. D - Received in fixative is one container labeled with the patient's name and designated mid esophagus biopsy. The specimen consists of one irregular fragment of light cloud soft tissue that measures 0.3 x 0.3 x <0.1 cm. The specimen is totally submitted in one cassette. E - Received in fixative is one container labeled with the patient's name and designated terminal ileum biopsy. The specimen consists of one irregular fragment of light cloud soft tissue that measures 0.6 x 0.2 x 0.1 cm. The specimen is totally submitted in one cassette. F - Received in fixative is one container labeled with the patient's name and designated random colon biopsy. The specimen consists of multiple irregular fragments of light cloud soft tissue that in aggregate measure 3 x 0.6 x 0.1 cm. The specimen is totally submitted in one cassette. / AM:nathan 07/19/21 TC3: CPT: 66117 x6, 63730 x2
--- NOTE | 2021-07-19 11:04 | OP.EGD_ITS ---
Patient Name: Isaura Dent Procedure Date: 07/19/2021 10:12 AM Date of : 1965 Age: 55 Procedure: Upper GI endoscopy Indications: Abdominal pain in the right upper quadrant Providers: Govind Sapp MD Medicines: See the Anesthesia note for documentation of the administered medications Complications: No immediate complications. Procedure: Pre-Anesthesia Assessment: - Prior to the procedure, a History and Physical was performed, and patient medications and allergies were reviewed. The patient's tolerance of previous anesthesia was also reviewed. The risks and benefits of the procedure and the sedation options and risks were discussed with the patient. All questions were answered, and informed consent was obtained. Prior Anticoagulants: The patient has taken no previous anticoagulant or antiplatelet agents. ASA Grade Assessment: II - A patient with mild systemic disease. After reviewing the risks and benefits, the patient was deemed in satisfactory condition to undergo the procedure. After obtaining informed consent, the endoscope was passed under direct vision. Throughout the procedure, the patient's blood pressure, pulse, and oxygen saturations were monitored continuously. The gastroscope was introduced through the mouth, and advanced to the second part of duodenum. The upper GI endoscopy was accomplished without difficulty. The patient tolerated the procedure well. Scope In: 10:30:26 AM Scope Out: 10:39:24 AM Total Procedure Duration Time 0 hours 8 minutes 58 seconds Findings: Esophagitis with no bleeding was found 38 cm from the incisors. Biopsies were taken with a cold forceps for histology. The middle third of the esophagus was normal. Biopsies were taken with a cold forceps for histology. A small hiatal hernia was present. Diffuse mildly erythematous mucosa without bleeding was found in the gastric antrum. Biopsies were taken with a cold forceps for histology. Bilious fluid was found in the gastric body. The examined duodenum was normal. Biopsies were taken with a cold forceps for histology. Impression: - Reflux esophagitis, mild. Biopsied. - Normal middle third of esophagus. Biopsied. - Small hiatal hernia. - Erythematous mucosa in the antrum. Biopsied. - Bilious gastric fluid. - Normal examined duodenum. Biopsied. Recommendation: - Discharge patient to home. - Resume previous diet. - Continue present medications. - Use sucralfate tablets 1 gram PO QID. Procedure Code(s): --- Professional --- 96582, Esophagogastroduodenoscopy, flexible, transoral; with biopsy, single or multiple Diagnosis Code(s): --- Professional --- K21.0, Gastro-esophageal reflux disease with esophagitis K44.9, Diaphragmatic hernia without obstruction or gangrene K31.89, Other diseases of stomach and duodenum R10.11, Right upper quadrant pain CPT copyright 2017 [employer]. All rights reserved. The codes documented in this report are preliminary and upon marklogic developer review may be revised to meet current compliance requirements. Govind Sapp MD 07/19/2021 11:04:12 AM This report has been signed electronically. Number of Addenda: 0 Note Initiated On: 07/19/2021 10:12 AM
[2021-07-19 11:05] VITALS: BP 110/74; BP 147/83; PULSE 78; RESP 18; TEMP 35.6; O2SAT 100
--- NOTE | 2021-07-19 11:05 | OP.CCLET_ITS ---
07/19/2021 Calvin Vivas [address] [place] [address] Re : Upper GI endoscopy procedure for Isaura Dent Dear Dr. Vivas This procedure was performed on Monday, July 19, 2021. My impressions and recommendations are as follows: Impressions : - Reflux esophagitis, mild. Biopsied. - Normal middle third of esophagus. Biopsied. - Small hiatal hernia. - Erythematous mucosa in the antrum. Biopsied. - Bilious gastric fluid. - Normal examined duodenum. Biopsied. Recommendations : - Discharge patient to home. - Resume previous diet. - Continue present medications. - Use sucralfate tablets 1 gram PO QID. My findings are described in the full procedure note, which is enclosed. If I can be of further assistance, please feel free to contact me at Doctor phone number(s): Work: . Sincerely, Govind Sapp MD 07/19/2021 11:04:12 AM This report has been signed electronically.
[2021-07-19 11:10] VITALS: BP 116/76; BP 147/83; PULSE 80; RESP 16; O2SAT 99
--- NOTE | 2021-07-19 11:10 | OP.COLON_ITS ---
Patient Name: Isaura Dent Procedure Date: 07/19/2021 10:40 AM Date of : 1965 Age: 55 Procedure: Colonoscopy Indications: Abdominal pain in the right lower quadrant Providers: Govind Sapp MD Medicines: See the Anesthesia note for documentation of the administered medications Patient Profile: Last Colonoscopy: 2011. Complications: No immediate complications. Procedure: Pre-Anesthesia Assessment: - Prior to the procedure, a History and Physical was performed, and patient medications and allergies were reviewed. The patient's tolerance of previous anesthesia was also reviewed. The risks and benefits of the procedure and the sedation options and risks were discussed with the patient. All questions were answered, and informed consent was obtained. Prior Anticoagulants: The patient has taken no previous anticoagulant or antiplatelet agents. ASA Grade Assessment: II - A patient with mild systemic disease. After reviewing the risks and benefits, the patient was deemed in satisfactory condition to undergo the procedure. After I obtained informed consent, the scope was passed under direct vision. Throughout the procedure, the patient's blood pressure, pulse, and oxygen saturations were monitored continuously. The Colonoscope was introduced through the anus and advanced to the cecum, identified by appendiceal orifice and ileocecal valve. The colonoscopy was performed without difficulty. The patient tolerated the procedure well. The quality of the bowel preparation was good. The terminal ileum, the ileocecal valve and the appendiceal orifice were photographed. Scope In: 10:42:53 AM Scope Withdrawal Time 0 hours 10 minutes 54 seconds Scope Out: 10:58:52 AM Total Procedure Duration Time 0 hours 15 minutes 59 seconds Findings: The digital rectal exam findings include non-thrombosed external hemorrhoids, non-thrombosed internal hemorrhoids and internal hemorrhoids that prolapse with straining, but spontaneously regress to the resting position (Grade II). The colon (entire examined portion) appeared normal. Biopsies for histology were taken with a cold forceps from the entire colon for evaluation of microscopic colitis. The terminal ileum appeared normal. Biopsies were taken with a cold forceps for histology. Scattered diverticula were found in the sigmoid colon. Impression: - Non-thrombosed external hemorrhoids, non-thrombosed internal hemorrhoids and internal hemorrhoids that prolapse with straining, but spontaneously regress to the resting position (Grade II) found on digital rectal exam. - The entire examined colon is normal. Biopsied. - The examined portion of the ileum was normal. Biopsied. - Diverticulosis in the sigmoid colon. Recommendation: - Discharge patient to home. - Resume previous diet. - Continue present medications. - Repeat colonoscopy in 10 years for screening purposes. - Telephone my office for pathology results in 1 week. Procedure Code(s): --- Professional --- 15441, Colonoscopy, flexible; with biopsy, single or multiple Diagnosis Code(s): --- Professional --- K64.1, Second degree hemorrhoids K64.4, Residual hemorrhoidal skin tags R10.31, Right lower quadrant pain K57.30, Diverticulosis of large intestine without perforation or abscess without bleeding CPT copyright 2017 [employer]. All rights reserved. The codes documented in this report are preliminary and upon hcc coders review may be revised to meet current compliance requirements. Govind Sapp MD 07/19/2021 11:10:03 AM This report has been signed electronically. Number of Addenda: 0 Note Initiated On: 07/19/2021 10:40 AM
--- NOTE | 2021-07-19 11:11 | OP.CCLET_ITS ---
07/19/2021 Calvin Vivas [address] [place] [address] Re : Colonoscopy procedure for Isaura Dent Dear Dr. Vivas This procedure was performed on Monday, July 19, 2021. My impressions and recommendations are as follows: Impressions : - Non-thrombosed external hemorrhoids, non-thrombosed internal hemorrhoids and internal hemorrhoids that prolapse with straining, but spontaneously regress to the resting position (Grade II) found on digital rectal exam. - The entire examined colon is normal. Biopsied. - The examined portion of the ileum was normal. Biopsied. - Diverticulosis in the sigmoid colon. Recommendations : - Discharge patient to home. - Resume previous diet. - Continue present medications. - Repeat colonoscopy in 10 years for screening purposes. - Telephone my office for pathology results in 1 week. My findings are described in the full procedure note, which is enclosed. If I can be of further assistance, please feel free to contact me at Doctor phone number(s): Work: . Sincerely, Govind Sapp MD 07/19/2021 11:10:03 AM This report has been signed electronically.
[2021-07-19 11:15] VITALS: BP 112/69; BP 147/83; PULSE 72; RESP 16; O2SAT 100
[2021-07-19 11:20] VITALS: BP 122/72; BP 147/83; PULSE 69; RESP 16; TEMP 35.8; O2SAT 100
[2021-07-19 11:43] VITALS: BP 147/83
== END 2021-07-19 12:00 ==
LOC: EN 09:54 → AC 09:56
PROVIDERS: PCP Family Medicine; Referring Provider Family Medicine; Visit Provider Surgery
PROC: 0DJD8ZZ Inspection of Lower Intestinal Tract, Via Natural or Artificial Opening Endoscopic (ICD-10-PCS; CPT 45378; principal; 2021-07-19 10:55)
DX: K29.50 Unspecified chronic gastritis without bleeding (principal); K21.00 Gastro-esophageal reflux disease with esophagitis, without bleeding; K57.30 Diverticulosis of large intestine without perforation or abscess without bleeding; K44.9 Diaphragmatic hernia without obstruction or gangrene; K64.1 Second degree hemorrhoids; K64.4 Residual hemorrhoidal skin tags; K59.00 Constipation, unspecified; F32.A Depression, unspecified; F41.9 Anxiety disorder, unspecified; Z78.0 Asymptomatic menopausal state; Z98.84 Bariatric surgery status
CPT/HCPCS: 43239; 45380; 88305; 88313; 88342; J7120; J2405